=== PATIENT | female | born 1940 | race Caucasian/White ===

== ENCOUNTER 2023-08-15 19:57 | Inpatient (IN) | payer OTHER ==
[2023-08-15] MEDS ORDERED: ACETAMINOPHEN INJECTION 100 ML IVPB ONE (21:09)
[2023-08-15] MEDS ORDERED: dilTIAZem HCL 125 MG/25 ML - 25 ML VIAL ONE (21:29)
[2023-08-15] MEDS: ACETAMINOPHEN 1000 MG/100 ML BAG IVPB ONE (21:45)
[2023-08-15] MEDS: dilTIAZem HCL 50 MG/10 ML - 10 ML VIAL IVPUSH ONE ×2 (21:45→21:46)
[2023-08-15 21:46] LABS: EPI CELLS 4 /uL (0-25.1); HYALINE CASTS 0 /uL (0-3.1); PH,URINE 7.5 (5.0-8.0); URINE APPEARANCE CLEAR; URINE BACTERIA 16 /uL (0-1359); URINE BILIRUBIN NEGATIVE (NEGATIVE); URINE COLOR YELLOW; URINE GLUCOSE (UA) NEGATIVE (NEGATIVE); URINE KETONE NEGATIVE (NEGATIVE); URINE LEUK ESTERASE NEGATIVE (NEGATIVE); URINE NITRITE NEGATIVE (NEGATIVE); URINE PROTEIN 2+ (NEGATIVE); URINE RBC 8 /uL (0-23.9); URINE UROBILINOGEN 0.2 mg/dL (0.2-1.0); URINE WBC 39 /uL (0-25.8)
[2023-08-15] MEDS: NITROGLYCERIN SUBLINGUAL 1/150 0.4 MG TAB SL ONE (21:48)
[2023-08-15 21:51] LABS: EOS % 1.1 % (0-4.5); HEMATOCRIT 39.7 % (32.4-45.2); HEMOGLOBIN 12.9 GM/dL (10.7-15.3); LYMPH % 11.1 % (8-40); MCH 28.9 pg (25.7-33.7); MCHC 32.4 g/dl (32.0-36.0); MEAN CELL VOLUME 89.4 fl (80-96); MEAN PLT VOLUME 9.3 fl (7.5-11.1); MONO % 9.2 % (3.8-10.2); NEUT % 77.6 % (42.8-82.8); PLATELET COUNT 370 10^3/uL (134-434); RBC 4.44 M/mm3 (3.60-5.2); RDW 14.4 % (11.6-15.6)
[2023-08-15 22:04] LABS: POTASSIUM 5.5 mmol/L (3.5-5.1)
[2023-08-15 22:05] LABS: CALCIUM 9.2 mg/dL (8.5-10.1)
[2023-08-15 22:06] LABS: BLOOD UREA NITROGEN 21.1 mg/dL (7-18)
[2023-08-15 22:09] LABS: CREATININE 1.1 mg/dL (0.55-1.3)
[2023-08-15 22:11] LABS: BILIRUBIN,TOTAL 0.4 mg/dL (0.2-1); TOT PROT 6.7 g/dl (6.4-8.2)
[2023-08-15 22:16] LABS: INR 1.1 (0.83-1.09); PROTHROMBIN TIME (PATIENT) 12.7 SEC (9.7-13.0)
[2023-08-15 22:18] LABS: ACTIVATED PTT 29.5 SECONDS (25.2-36.5)
[2023-08-15 23:56] LABS: POTASSIUM 4.6 mmol/L (3.5-5.1)
[2023-08-15 23:59] LABS: BLOOD UREA NITROGEN 21.2 mg/dL (7-18); CALCIUM 8.7 mg/dL (8.5-10.1)
[2023-08-16] MEDS ORDERED: dilTIAZem HCL 60 MG TABLET ONE (00:01)
[2023-08-16 00:03] LABS: CREATININE 1.1 mg/dL (0.55-1.3)
[2023-08-16] MEDS ORDERED: dilTIAZem HCL 30 MG TABLET ONE (00:07)
[2023-08-16] MEDS: dilTIAZem HCL 60 MG TABLET PO ONE (00:09)
[2023-08-16] MEDS: dilTIAZem HCL 30 MG TABLET PO ONE (00:09)
[2023-08-16] MEDS ORDERED: ACETAMINOPHEN INJECTION 100 ML IVPB ONE (03:10)
[2023-08-16] MEDS: ACETAMINOPHEN 1000 MG/100 ML BAG IVPB PRN (03:42)
[2023-08-16] MEDS ORDERED: LABETALOL HCL 20 MG/4 ML VIAL ONE (06:25)
[2023-08-16] MEDS: ACETAMINOPHEN/CAFFEINE/BUTALBITAL 1 TAB PO ONE (06:43)
[2023-08-16] MEDS: LABETALOL HCL 5 MG/1 ML (100MG/20 ML VIAL) IVPUSH ONE (06:44)
[2023-08-16 07:43] LABS: HEMATOCRIT 38.3 % (32.4-45.2); HEMOGLOBIN 12.7 GM/dL (10.7-15.3); MCH 29.8 pg (25.7-33.7); MCHC 33.1 g/dl (32.0-36.0); MEAN CELL VOLUME 89.9 fl (80-96); MEAN PLT VOLUME 9.2 fl (7.5-11.1); PLATELET COUNT 357 10^3/uL (134-434); RBC 4.26 M/mm3 (3.60-5.2); WHITE BLOOD COUNT 13.1 K/mm3 (4.0-10.0)
[2023-08-16 08:02] LABS: POTASSIUM 4.6 mmol/L (3.5-5.1)
[2023-08-16 08:07] LABS: CALCIUM 8.8 mg/dL (8.5-10.1)
[2023-08-16 08:08] LABS: ALBUMIN 2.8 g/dl (3.4-5.0); BLOOD UREA NITROGEN 18.2 mg/dL (7-18); MAGNESIUM 1.9 mg/dL (1.8-2.4)
[2023-08-16 08:11] LABS: CREATININE 1.1 mg/dL (0.55-1.3)
[2023-08-16 08:12] LABS: BILIRUBIN,TOTAL 0.3 mg/dL (0.2-1); TOT PROT 6.1 g/dl (6.4-8.2)
[2023-08-16] MEDS: INSULIN ASPART SLIDING SCALE (NOVOLOG) 1 VIAL SQ SCH (09:00)
[2023-08-16] MEDS ORDERED: LOSARTAN POTASSIUM 50 MG TABLET ONE (09:41)
[2023-08-16] MEDS ORDERED: ENOXAPARIN NA (PORCINE) 40 MG/0.4 ML DISP.SYRIN SQ ONE (09:42)
[2023-08-16] MEDS ORDERED: ALPRAZolam 1 MG TABLET ONE (10:39)
[2023-08-16] MEDS ORDERED: LABETALOL HCL 5 MG/1 ML (100MG/20 ML VIAL) ONE (10:40)
[2023-08-16] MEDS: LOSARTAN POTASSIUM 50 MG TABLET PO SCH (10:45)
[2023-08-16] MEDS: ALPRAZolam 0.25 MG TABLET PO ONE (11:00)
[2023-08-16] MEDS: ENOXAPARIN NA (PORCINE) 40 MG/0.4 ML DISP.SYRIN SQ SCH (11:06)
[2023-08-16] MEDS: LABETALOL HCL 5 MG/1 ML (200MG/40ML VIAL) IVPB ONE (11:31)
[2023-08-16] MEDS ORDERED: oxyCODONE HCL 5 MG TABLET ONE (15:50)
[2023-08-16] MEDS: oxyCODONE HCL 5 MG TABLET PO ONE (15:57)
[2023-08-16] MEDS: LABETALOL HCL 200 MG TABLET (FP) PO ONE ×2 (16:00→17:43)
[2023-08-16] MEDS ORDERED: metoPROLOL SUCCINATE 25 MG TAB.SR.24H (FP) PO SCH (16:00)
[2023-08-16] MEDS ORDERED: LABETALOL HCL 200 MG TABLET (FP) ONE (16:05)
[2023-08-16] MEDS ORDERED: INSULIN (NOVOLOG) ASPART 100 UNITS/ML 10ML VIAL ONE (18:08)
[2023-08-16] MEDS ORDERED: LABETALOL HCL 5 MG/1 ML (100MG/20 ML VIAL) IVPUSH ONE (20:47)
[2023-08-16] MEDS ORDERED: LABETALOL HCL 200 MG TABLET (FP) PO SCH (22:00)
[2023-08-16] MEDS: LABETALOL HCL 100 MG TABLET (FP) PO SCH (23:34)
[2023-08-17 01:55] VITALS: BMI 28.5
[2023-08-17 07:24] LABS: BASO % 1.2 % (0-2.0); EOS % 1.5 % (0-4.5); HEMATOCRIT 37.1 % (32.4-45.2); HEMOGLOBIN 12.1 GM/dL (10.7-15.3); LYMPH % 22.6 % (8-40); MCH 28.9 pg (25.7-33.7); MCHC 32.5 g/dl (32.0-36.0); MEAN CELL VOLUME 88.9 fl (80-96); MEAN PLT VOLUME 8.8 fl (7.5-11.1); MONO % 12.9 % (3.8-10.2); NEUT % 61.8 % (42.8-82.8); PLATELET COUNT 379 10^3/uL (134-434); RBC 4.17 M/mm3 (3.60-5.2); RDW 14.2 % (11.6-15.6); WHITE BLOOD COUNT 11.5 K/mm3 (4.0-10.0)
[2023-08-17 07:40] LABS: POTASSIUM 4.4 mmol/L (3.5-5.1)
[2023-08-17 07:48] LABS: ALBUMIN 2.5 g/dl (3.4-5.0); BLOOD UREA NITROGEN 16.5 mg/dL (7-18); CALCIUM 8.8 mg/dL (8.5-10.1); MAGNESIUM 2.1 mg/dL (1.8-2.4)
[2023-08-17 07:52] LABS: CREATININE 1.2 mg/dL (0.55-1.3)
[2023-08-17 07:53] LABS: BILIRUBIN,TOTAL 0.3 mg/dL (0.2-1); TOT PROT 5.6 g/dl (6.4-8.2)
[2023-08-17] MEDS: ACETAMINOPHEN 1000 MG/100 ML BAG IVPB PRN (13:46)
[2023-08-18] MEDS ORDERED: INSULIN (NOVOLOG) ASPART 100 UNITS/ML 10ML VIAL ONE (06:04)
[2023-08-18 07:07] LABS: BASO % 0.9 % (0-2.0); EOS % 2.5 % (0-4.5); HEMATOCRIT 36.7 % (32.4-45.2); HEMOGLOBIN 11.8 GM/dL (10.7-15.3); LYMPH % 17.8 % (8-40); MCH 28.8 pg (25.7-33.7); MCHC 32.1 g/dl (32.0-36.0); MEAN CELL VOLUME 89.6 fl (80-96); MEAN PLT VOLUME 8.6 fl (7.5-11.1); MONO % 11.3 % (3.8-10.2); NEUT % 67.5 % (42.8-82.8); PLATELET COUNT 393 10^3/uL (134-434); RDW 13.8 % (11.6-15.6); WHITE BLOOD COUNT 11.9 K/mm3 (4.0-10.0)
[2023-08-18 07:26] LABS: POTASSIUM 4.8 mmol/L (3.5-5.1)
[2023-08-18 07:35] LABS: CREATININE 1.2 mg/dL (0.55-1.3); PHOSPHOROUS 3.9 mg/dL (2.5-4.9)
[2023-08-18 07:36] LABS: ALBUMIN 2.5 g/dl (3.4-5.0); BILIRUBIN,TOTAL 0.3 mg/dL (0.2-1); BLOOD UREA NITROGEN 28.7 mg/dL (7-18); CALCIUM 9.1 mg/dL (8.5-10.1); MAGNESIUM 2.4 mg/dL (1.8-2.4); TOT PROT 5.8 g/dl (6.4-8.2)
[2023-08-18 11:56] LABS: ERYTHROCYTE SEDIMENTATION RATE 66 mm/hr (0-30)
[2023-08-18] MEDS: KETOROLAC TROMETHAMINE 15 MG/ML VIAL IVPUSH ONE ×2 (12:58→21:19)
[2023-08-18] MEDS ORDERED: ACETAMINOPHEN 1000 MG/100 ML BAG IVPB PRN (20:36)
[2023-08-19] MEDS: ACETAMINOPHEN/CAFFEINE/BUTALBITAL 1 TAB PO ONE (06:54)
[2023-08-19] MEDS: predniSONE 20 MG TABLET (UD) PO SCH (12:35)
[2023-08-19] MEDS: KETOROLAC TROMETHAMINE 15 MG/ML VIAL IM PRN (14:39)
[2023-08-19] MEDS ORDERED: diphenhydrAMINE HCL 25 MG CAPSULE (FP) PO ONE (15:15)
[2023-08-20 06:46] LABS: BASO % 0.5 % (0-2.0); HEMATOCRIT 30.8 % (32.4-45.2); HEMOGLOBIN 10.1 GM/dL (10.7-15.3); LYMPH % 11.2 % (8-40); MCH 29.1 pg (25.7-33.7); MCHC 32.7 g/dl (32.0-36.0); MEAN CELL VOLUME 88.9 fl (80-96); MEAN PLT VOLUME 8.6 fl (7.5-11.1); MONO % 4.8 % (3.8-10.2); NEUT % 83.5 % (42.8-82.8); PLATELET COUNT 397 10^3/uL (134-434); RBC 3.46 M/mm3 (3.60-5.2); RDW 14.2 % (11.6-15.6); WHITE BLOOD COUNT 12.8 K/mm3 (4.0-10.0)
[2023-08-20 07:01] LABS: POTASSIUM 5.8 mmol/L (3.5-5.1)
[2023-08-20 07:07] LABS: BLOOD UREA NITROGEN 44.2 mg/dL (7-18)
[2023-08-20 07:08] LABS: CALCIUM 8.5 mg/dL (8.5-10.1)
[2023-08-20 07:09] LABS: ALBUMIN 2.3 g/dl (3.4-5.0); MAGNESIUM 2.3 mg/dL (1.8-2.4)
[2023-08-20 07:12] LABS: CREATININE 1.5 mg/dL (0.55-1.3)
[2023-08-20 07:13] LABS: BILIRUBIN,TOTAL 0.2 mg/dL (0.2-1); TOT PROT 5.3 g/dl (6.4-8.2)
[2023-08-20] MEDS: amLODIPine BESYLATE 10 MG TABLET (FP) PO SCH (09:51)
[2023-08-20] MEDS: SODIUM CHLORIDE 0.9% 500 ML INFUS.BAG IV ONE (09:53)
[2023-08-20] MEDS: SODIUM ZIRCONIUM CYCLOSILICATE (LOKELMA) 5 GM PACKET PO ONE (12:22)
[2023-08-20] MEDS: SODIUM ZIRCONIUM CYCLOSILICATE (LOKELMA) 5 GM PACKET PO SCH ×2 (15:53→22:07)
[2023-08-20] MEDS: CALCIUM GLUC IN NACL, ISO-OSM 1 GM/50 ML BAG IVPB ONE (17:39)
[2023-08-20] MEDS: diphenhydrAMINE HCL 25 MG CAPSULE (FP) PO ONE (17:56)
[2023-08-20 20:50] LABS: CHLORIDE 107 mmol/L (98-107); POTASSIUM 5.5 mmol/L (3.5-5.1); SODIUM 135 mmol/L (136-145)
[2023-08-20 20:52] LABS: CALCIUM 8.8 mg/dL (8.5-10.1)
[2023-08-20 20:53] LABS: ALBUMIN 2.4 g/dl (3.4-5.0); ANION GAP 7 mmol/L (4-13); BLOOD UREA NITROGEN 45.6 mg/dL (7-18); CO2 21 mmol/L (21-32)
[2023-08-20 20:56] LABS: CREATININE 1.5 mg/dL (0.55-1.3); SGOT/AST 35 U/L (15-37); SGPT/ALT 46 U/L (13-61)
[2023-08-20 20:57] LABS: TOT PROT 5.6 g/dl (6.4-8.2)
[2023-08-20 20:58] LABS: BILIRUBIN,TOTAL 0.2 mg/dL (0.2-1)
[2023-08-20 20:59] LABS: ALK PHOS 94 U/L (45-117)
[2023-08-20 21:04] LABS: GLUCOSE,RANDOM 443 mg/dL (74-106)
[2023-08-20] MEDS: INSULIN (LEVEMIR) 100 UNITS/ML UNITS SQ SCH (22:05)
[2023-08-20] MEDS: INSULIN (NOVOLOG) ASPART 100 UNITS/ML 10ML VIAL SQ SCH (22:05)
[2023-08-21 06:35] VITALS: RESP 19
[2023-08-21 06:56] LABS: BASO % 0.4 % (0-2.0); HEMATOCRIT 31.5 % (32.4-45.2); HEMOGLOBIN 10.3 GM/dL (10.7-15.3); LYMPH % 15.9 % (8-40); MCHC 32.6 g/dl (32.0-36.0); MEAN CELL VOLUME 88.9 fl (80-96); MEAN PLT VOLUME 8.6 fl (7.5-11.1); NEUT % 76.7 % (42.8-82.8); PLATELET COUNT 410 10^3/uL (134-434); RBC 3.55 M/mm3 (3.60-5.2); RDW 14.4 % (11.6-15.6); WHITE BLOOD COUNT 13.5 K/mm3 (4.0-10.0)
[2023-08-21 07:09] LABS: POTASSIUM 5.4 mmol/L (3.5-5.1)
[2023-08-21 07:13] LABS: CALCIUM 9.7 mg/dL (8.5-10.1)
[2023-08-21 07:14] LABS: ALBUMIN 2.5 g/dl (3.4-5.0); BLOOD UREA NITROGEN 44.9 mg/dL (7-18)
[2023-08-21 07:17] LABS: CREATININE 1.3 mg/dL (0.55-1.3)
[2023-08-21 07:19] LABS: BILIRUBIN,TOTAL 0.2 mg/dL (0.2-1); TOT PROT 5.6 g/dl (6.4-8.2)
[2023-08-21 11:26] VITALS: BP 158/84; PULSE 62; TEMP 97.7
[2023-08-21] MEDS: predniSONE 20 MG TABLET (UD) PO SCH (11:27)
[2023-08-21] MEDS: APIXABAN 5 MG TABLET PO SCH (11:27)
== END 2023-08-21 15:13 | disposition home or self-care (01) | DRG 305 ==
LOC: JER 19:57 → JERBED 23:35 → OBSVTOIN 08-16 02:10 → J4W 08-17 01:05
PROVIDERS: ADMIT Internal Medicine; ATTEND Internal Medicine
DX: I16.1 Hypertensive emergency (principal); E11.22 Type 2 diabetes mellitus with diabetic chronic kidney disease; I12.9 Hypertensive chronic kidney disease with stage 1 through stage 4 chronic kidney disease, or unspecified chronic kidney disease; N18.9 Chronic kidney disease, unspecified; I48.0 Paroxysmal atrial fibrillation; M31.6 Other giant cell arteritis; E78.5 Hyperlipidemia, unspecified
CPT/HCPCS: 0241U-QW; 36415; 70450-TC; 71045-TC-FY; 76775-TC; 80048; 80053; 80061; 81003; 82962; 83036; 83735; 84100; 84439; 84443; 84484; 85025; 85027; 85610; 85651; 85730; 86140; 86850; 86900; 86901; 93005; 93010; 93306-TC; 93975; 99285-25; G0378; J0131

== ENCOUNTER 2023-09-19 14:36 | Emergency (ER) | payer OTHER ==
[2023-09-19 15:35] VITALS: RESP 18; TEMP 98.7; BMI 28.3
[2023-09-19 15:35] LABS: BASO % 0.6 % (0-2.0); EOS % 0.1 % (0-4.5); HEMATOCRIT 41.7 % (32.4-45.2); LYMPH % 15.6 % (8-40); MCH 29.5 pg (25.7-33.7); MCHC 33.7 g/dl (32.0-36.0); MEAN CELL VOLUME 87.6 fl (80-96); MONO % 9.5 % (3.8-10.2); NEUT % 74.2 % (42.8-82.8); PLATELET COUNT 268 10^3/uL (134-434); RBC 4.76 M/mm3 (3.60-5.2); RDW 15.3 % (11.6-15.6); WHITE BLOOD COUNT 9.5 K/mm3 (4.0-10.0)
[2023-09-19 15:40] LABS: INR 1.01 (0.83-1.09); PROTHROMBIN TIME (PATIENT) 11.4 SEC (9.7-13.0)
[2023-09-19 15:43] LABS: ACTIVATED PTT 32.9 SECONDS (25.2-36.5)
[2023-09-19 15:53] LABS: CHLORIDE 100 mmol/L (98-107); POTASSIUM 4.6 mmol/L (3.5-5.1); SODIUM 133 mmol/L (136-145)
[2023-09-19 15:54] LABS: CALCIUM 9.4 mg/dL (8.5-10.1)
[2023-09-19 15:55] LABS: ALBUMIN 3.2 g/dl (3.4-5.0); ANION GAP 5 mmol/L (4-13); CO2 28 mmol/L (21-32)
[2023-09-19 15:56] LABS: GLUCOSE,RANDOM 190 mg/dL (74-106)
[2023-09-19 15:58] LABS: CREATININE 1.2 mg/dL (0.55-1.3); SGPT/ALT 22 U/L (13-61)
[2023-09-19 15:59] LABS: SGOT/AST 21 U/L (15-37)
[2023-09-19 16:00] LABS: CHOLESTEROL 140 mg/dL (50-200); TOT PROT 6.1 g/dl (6.4-8.2)
[2023-09-19 16:01] LABS: BILIRUBIN,TOTAL 0.4 mg/dL (0.2-1); LDL CHOLESTEROL (ONLY SJRH) 65 mg/dL (5-100)
[2023-09-19 16:02] LABS: ALK PHOS 109 U/L (45-117)
[2023-09-19 16:03] LABS: HDL CHOLESTEROL 61 mg/dL (40-60)
[2023-09-19 17:31] VITALS: BP 157/65
[2023-09-19] MEDS: ASPIRIN 325 MG ENTERIC COATED TABLET (FP) PO ONE (17:56)
[2023-09-19] MEDS: ATORVASTATIN CA 80 MG TABLET (FP) PO ONE (17:56)
[2023-09-19] MEDS ORDERED: ASPIRIN 300 MG SUPP.RECT RC ONE (18:01)
[2023-09-19] MEDS: ASPIRIN SUPPOSITORY 600 MG SUPP.RECT RC ONE (18:09)
[2023-09-19 18:15] VITALS: PULSE 80
== END 2023-09-19 18:31 | disposition short-term general hospital (02) ==
LOC: JER 14:36
DX: I63.89 Other cerebral infarction (principal); I10 Essential (primary) hypertension
CPT/HCPCS: 36415; 70450-TC; 70496-TC; 70498-TC; 71045-TC-FY; 80053; 80061; 82550; 82553; 82962; 83036; 84484; 85025; 85610; 85730; 86850; 86900; 86901; 93005; 93010; 99285-25